=== PATIENT | male | born 1950 | race Caucasian/White ===

== ENCOUNTER → 2021-03-14 | Outpatient (CLI) | payer MEDICARE, OTHER ==
[2016-06-06 14:42] VITALS: BP 115/64
[~2021-03-14] MED LIST: AMLO2.5T5 PO; CRESTOR20 MG PO; FINA5TAB4 PO; LOSA1TAB7 PO
--- NOTE | 2021-03-14 12:30 | RAD ---
EXAM: ULTRASOUND ABDOMEN COMPLETE CLINICAL HISTORY: Lower abdominal pain COMPARISON: None available. TECHNIQUE: Ultrasound of the upper abdomen was performed. FINDINGS: The aorta, IVC within normal limits of dimension. The liver length measures 16 cm. The common bile du ct measures 1.5 mm in transverse dimension. The gallbladder is mildly distended with multiple echogen icities within the gallbladder likely gallstones. The spleen is 10.4 cm. The right kidney measures 11 .1 x 5.5 x 5.2 cm. The left kidney measures 11.2 x 4.7 x 4.4 cm. The pancreas is not well-visualized. IMPRESSION: 1. Cholelithiasis. Electronically signed by: Mars Carrillo MD (03/14/2021 12:28 PM) [id number]
== END ==
LOC: US 09:44
PROVIDERS: ATTEND Family Medicine
DX: K80.20 Calculus of gallbladder without cholecystitis without obstruction (principal); K82.8 Other specified diseases of gallbladder
CPT/HCPCS: 76700

== ENCOUNTER → 2021-06-20 | Day surgery (SDC) | payer MEDICARE, OTHER ==
[~2021-06-20] VITALS: Ht 188 cm; Wt 90.0 kg
[~2021-06-20] MED LIST changes: +ASPI81TA59 PO; +LIDOCAINE 2% PF 5 ML VIAL. ONE; +PROPOFOL 10 MG/ML (20ML) VIAL. IV ONE
[2021-06-20 08:13] VITALS: BP 114/55
[2021-06-20] MEDS: IV RINGERS,LACTATED 1000ML 1,000 ML IV SCH (08:24)
[2021-06-20 09:33] VITALS: BP 116/57
--- NOTE | 2021-06-20 09:49 | CONS ---
DATE OF CONSULTATION: 06/20/2021 GASTROENTEROLOGY CONSULTATION REASON FOR CONSULTATION: History of polyps. REFERRING PHYSICIAN: Cirilo Elizalde MD HISTORY OF PRESENT ILLNESS: A 71-year-old male with past medical history significant for hypertension, hyperlipidemia, history of colonic polyps, is seen for surveillance exam. Bowel habits are regular without diarrhea or constipation. Weight and appetite are stable and denies any melena and/or hematochezia. Last exam approximately 5 years ago did reveal polyps and is here today for interval exam. PAST MEDICAL HISTORY: Hypertension, hyperlipidemia, history of colonic polyps. ALLERGIES: None. MEDICATIONS: Include amlodipine, finasteride, Hyzaar, Crestor. FAMILY HISTORY: Significant for ulcerative colitis with sibling and NH with his mother. SOCIAL HISTORY: He is a nonsmoker and nondrinker. PAST SURGICAL HISTORY: Significant for inguinal hernia repair. REVIEW OF SYSTEMS: Per records. PHYSICAL EXAMINATION: GENERAL: Reveals a well-nourished, well-developed male, who is alert, cooperative, in no acute distress. VITAL SIGNS: Temperature 97.8, pulse 72, respiratory rate 20. LUNGS: Clear. CARDIOVASCULAR: Reveals an S1, S2, without S3, S4 or appreciable murmur. ABDOMEN: With soft abdomen, normal bowel sounds. No appreciable hepatosplenomegaly. EXTREMITIES: Reveals no cyanosis, clubbing or edema. IMPRESSION: History of colonic polyps. Surveillance exam is recommended at this time. Risks and benefits of procedure including risk of hemorrhage and perforation for operation were discussed. The patient is willing to proceed. PEDRO DR: Hattie TID: [id number]
== END | disposition home or self-care (01) ==
LOC: ENDOS 07:37
PROVIDERS: ATTEND Internal Medicine Gastroenterology
DX: Z12.11 Encounter for screening for malignant neoplasm of colon (principal); K64.0 First degree hemorrhoids; K57.30 Diverticulosis of large intestine without perforation or abscess without bleeding; K63.89 Other specified diseases of intestine; I10 Essential (primary) hypertension; E78.00 Pure hypercholesterolemia, unspecified; N40.0 Benign prostatic hyperplasia without lower urinary tract symptoms; M19.90 Unspecified osteoarthritis, unspecified site; Z86.010 Personal history of colon polyps; Z79.899 Other long term (current) drug therapy; Z79.82 Long term (current) use of aspirin; Z98.890 Other specified postprocedural states
CPT/HCPCS: 45378; G0105; J2704

== ENCOUNTER 2021-06-27 10:46 | Day surgery (SDC) | payer MEDICARE, OTHER ==
[~2021-06-27] VITALS: Ht 188 cm; Wt 90.0 kg
[~2021-06-27 10:46] MED LIST changes: -ASPI81TA59 PO; +HEPARIN 1,000 UNIT in IV NORMAL SALINE 1,000 ML for SURG PERIOP IRR ONE; +HYDROmorphone 2 MG/ML VIAL IVP PRN; +IV RINGERS,LACTATED 1000ML 1,000 ML IV SCH; -LIDOCAINE 2% PF 5 ML VIAL. ONE; +MORPHINE SULFATE 2 MG/ML INJ. IVP PRN; +PROCHLORPERAZINE 10 MG/2 ML VIAL. IVP PRN; -PROPOFOL 10 MG/ML (20ML) VIAL. IV ONE; +fentaNYL PF VIAL 100 MCG/2 ML VIAL IVP PRN
[2021-06-27] MEDS ORDERED: ASPI81TA59 PO (11:15)
[2021-06-27] MEDS ORDERED: ROCURONIUM 50 MG/5 ML VIAL. ONE (11:40)
[2021-06-27] MEDS ORDERED: ONDANSETRON PF 4 MG/2 ML VIAL. ONE (11:40)
[2021-06-27] MEDS ORDERED: DEXAMETHASONE SOD PHOS 4 MG/ML VIAL ONE (11:40)
[2021-06-27] MEDS ORDERED: fentaNYL PF VIAL 100 MCG/2 ML VIAL ONE (11:41)
[2021-06-27] MEDS ORDERED: LIDOCAINE 2% PF 5 ML VIAL. ONE (11:55)
[2021-06-27] MEDS ORDERED: PROPOFOL 10 MG/ML (20ML) VIAL. IV ONE (11:55)
--- NOTE | 2021-06-27 12:09 | PDOC ---
SURGICAL PROGRESS NOTE DATE: 06/27/21 TIME: 12:07 Subjective Pre-Op Note 71 yo M with symptomatic cholelithiasis. TO OR for laparoscopic versus open cholecystectomy with cholangiogram. R/R/B/A d/w pt and pt's supportive SO. Risks, including, but not limited to: bleeding, infection, damage to surrounding structures, risk of anesthesia, risk of open. They appear to understand, their questions are answered and they elect to proceed. Office note H&P reviewed and unchanged. Vital Signs Vital Signs Date Time Temp Pulse Resp B/P (MAP) Pulse Ox O2 Delivery O2 Flow Rate FiO2 06/27/21 11:15 97.0 64 20 128/60 95 Room Air 97.0 Justicifation of Admission Dx: Justifications for Admission: Justification of Admission Dx: N/A OLIVE SCHAFER MD Jun 27, 2021 12:09
[2021-06-27] MEDS ORDERED: BUPIVACAINE-EPI 0.5% 30 ML VIAL KIT. ONE (12:11)
[2021-06-27] MEDS ORDERED: SURGICEL HEMOSTAT 2X14 EACH. ONE (12:11)
[2021-06-27] MEDS ORDERED: IOHEXOL 300 MG/ML 50 ML VIAL. ONE (12:11)
[2021-06-27] MEDS ORDERED: BISACODYL 10 MG SUPP.RECT. ONE (12:12)
[2021-06-27] MEDS ORDERED: GLYCOPYRROLATE 1 MG/5 ML VIAL. ONE (12:18)
[2021-06-27] MEDS ORDERED: NEOSTIGMINE METHYLSULFATE 5 MG/5 ML SYRINGE. ONE (12:18)
[2021-06-27] MEDS ORDERED: ePHEDrine PF IN SALINE 50 MG/10 ML SYRINGE. IV ONE (12:20)
[2021-06-27] MEDS ORDERED: HYDROmorphone 2 MG/ML VIAL ONE (12:29)
--- NOTE | 2021-06-27 13:17 | RAD ---
DG INTRAOPERATIVE CHOLANGIOGRAM History: Reason: CHOLANGIOGRAM IN OR W/C-ARM fluoro time 3.5 seconds / Spl. Instructions: / History : . Pain Comparison: None. Technique/findings: Fluoroscopy performed intraoperatively during cholangiogram after cholecystectomy. Normal caliber com mon bile duct. Contrast is seen spilling into the small bowel. See procedure note for further details. Fluoroscopy time: 8.5 seconds Number of fluoroscopic images: 1 Impression: 1. Fluoroscopy provided intraoperatively during cholangiogram. No evidence of common bile duct steno sis or obstruction. Electronically signed by: Jimi Mtz DO (06/27/2021 1:15 PM) [id number]
--- NOTE | 2021-06-27 13:21 | PDOC4 ---
OPERATIVE NOTE Date: Date: Jun 27, 2021 Pre-Op Diagnosis: Symptomatic cholelithiasis Post-Op Diagnosis: same Procedure Performed: laparoscopic cholecystectomy with cholangiogram Surgeon: Praveen Schafer Anesthesia Type: GETA with local Blood Loss: 50 Specimans Obtained: gallbladder Findings: indurated gallbladder, normal cholangiogram, normal viscera otherwise Complications: none Operative Note: After obtaining informed consent, patient was taken to OR, induced under GETA and prepped in the usual fashion. 5 mm ports placed umbilical and RUQ, 12 port placed epigastric, all under laparoscopic guidance. Abdominal cavity was explored and normal except as above. Gallbladder grasped and taken off fossa in dome down fashion using cautery. Cystic artery ligated with clips and divided. Cholangiogram obtained via cystic duct and was normal. Cystic duct controlled with hemolok and clips. Gallbladder placed in bag, delivered and sent to pathology. Copious irrigation. No evidence of bleeding or other pathology. Ports removed with some bleeding at epigastric port. Controlled with cautery and figure 8 0 vicryl closure of fascia. Skin repaired with 4 0 monocryl. Dressing placed. Patient tolerated procedure well and sent to PACU in stable condition. All counts correct. Wound class is 3. OLIVE SCHAFER MD Jun 27, 2021 13:21
[2021-06-27] MEDS ORDERED: HYDROcodone/APAP 5/325MG 1 TAB TABLET PO ONE (13:45)
[2021-06-27 14:07] VITALS: BP 124/52
--- NOTE | 2021-06-29 17:14 | PATHOLOGY ---
[facility] Accession Number: [id number] . 01 Material submitted: . gallbladder - GALLBLADDER AND CONTENTS . 01 Clinical history: . SYMPTOMATIC CHOLELITHIASIS LAP CARLITA . 02 Diagnosis: Gallbladder, laparoscopic cholecystectomy: - Cholelithiasis. - Chronic cholecystitis with increased eosinophils. (JPM:nestor; 06/29/2021) S 06/29/2021 0851 Local . 02 Comment: There is no evidence of malignancy. (JPM:nestor; 06/29/2021) . 02 Electronically signed: . Hoang Uribe MD, Pathologist NPI- [id number] . 01 Gross description: . Fixative: Formalin Labeled: Gallbladder and contents Specimen received: Intact gallbladder Dimensions: 6.7 x 3.4 x 3.3 cm Serosa: Light hernandez-willis to light green Lymph node: None identified Mucosa: Velvety and bile-stained Average wall thickness: 0.2 cm Calculi: Present, black and friable Abnormalities: None identified . A1- [employer] body, fundus, and the cystic duct margin. ([facility]; 06/28/2021) [facility] 06/28/2021 1146 Local . 02 Pathologist provided ICD-10: K80.10 . 02 CPT . 365759 Specimen Comment: A courtesy copy of this report has been sent to [phone] Specimen Comment: Report sent to Performed at: 01 [facility] [address], [place] [id number] MD Wesley Ibarra MD Phone: [phone] Performed at: 02 [facility] [address] [place], [place] [id number] MD Hoang Uribe MD Phone: [phone]
== END 2021-06-27 14:45 | disposition home or self-care (01) ==
LOC: SURG 10:46
PROVIDERS: ATTEND Surgery
DX: K80.20 Calculus of gallbladder without cholecystitis without obstruction (principal); I10 Essential (primary) hypertension; E78.00 Pure hypercholesterolemia, unspecified; N40.0 Benign prostatic hyperplasia without lower urinary tract symptoms; M19.90 Unspecified osteoarthritis, unspecified site; Z98.890 Other specified postprocedural states; Z79.899 Other long term (current) drug therapy
CPT/HCPCS: 47563; 74300; A4213; A4314; A4930; A6219; C1887; J0690; J1100; J1170; J1644; J2405; J2704; J2710; J3010; J3490; J7030; Q9967; 88304